=== PATIENT | male | born 1945 | race Caucasian/White ===

== ENCOUNTER → 2018-06-08 | Outpatient (CLI) | payer BC | END | disposition home or self-care (01) | LOC: ROC 07:16 | PROVIDERS: ATTEND Radiology Radiation Oncology | DX: C61 Malignant neoplasm of prostate (principal) | CPT/HCPCS: 76942; 77332; 99156; A4648 ==

== ENCOUNTER 2018-09-10 07:04 | Outpatient (CLI) | payer BC | END 2018-09-10 23:59 | disposition home or self-care (01) | LOC: ROC 07:04 | PROVIDERS: ATTEND Radiology Radiation Oncology | DX: Z08 Encounter for follow-up examination after completed treatment for malignant neoplasm (principal); Z85.46 Personal history of malignant neoplasm of prostate; Z79.899 Other long term (current) drug therapy; Z88.0 Allergy status to penicillin | CPT/HCPCS: 99212; G0463 ==